=== PATIENT | female | born 1955 | race Caucasian/White ===

== ENCOUNTER 2024-05-24 08:57 | Outpatient (CLI) | payer OTHER ==
[~2024-05-24 08:57] MED LIST: CALTRATE-600/VI1 TA1; LASIX20 MG; NORVASC5 MG; SYNTHROID150 MCG; VITAMIN B12; ZESTRIL20 MG; ZIAC 5-6.25 MG1 TAB
== END 2024-05-24 09:01 | disposition home or self-care (01) ==
LOC: RAD 08:57
PROVIDERS: ATTEND Orthopaedic Surgery
DX: M25.561 Pain in right knee (principal); M25.562 Pain in left knee

== ENCOUNTER 2024-06-03 10:26 | Outpatient (CLI) | payer OTHER | END 2024-06-03 10:27 | disposition home or self-care (01) | LOC: NUCLEAR 10:26 | PROVIDERS: ATTEND Orthopaedic Surgery | DX: M81.0 Age-related osteoporosis without current pathological fracture (principal) ==

== ENCOUNTER 2024-07-29 10:47 | Outpatient (CLI) | payer OTHER | END 2024-07-29 10:48 | disposition home or self-care (01) | LOC: LAB 10:47 | PROVIDERS: ATTEND Orthopaedic Surgery | DX: E55.9 Vitamin D deficiency, unspecified (principal); M85.9 Disorder of bone density and structure, unspecified; E56.1 Deficiency of vitamin K ==

== ENCOUNTER 2024-07-29 11:12 | Outpatient (CLI) | payer OTHER | END 2024-07-29 11:18 | disposition home or self-care (01) | LOC: MRI 11:12 | PROVIDERS: ATTEND Orthopaedic Surgery | DX: M17.11 Unilateral primary osteoarthritis, right knee (principal); M23.91 Unspecified internal derangement of right knee | CPT/HCPCS: 73718 ==

== ENCOUNTER 2024-10-13 14:07 | Outpatient (CLI) | payer OTHER | END 2024-10-13 14:09 | disposition home or self-care (01) | LOC: RAD 14:07 | PROVIDERS: ATTEND Orthopaedic Surgery | DX: M25.512 Pain in left shoulder (principal) ==

== ENCOUNTER 2024-10-17 10:32 | Outpatient (CLI) | payer OTHER | END 2024-10-17 10:35 | disposition home or self-care (01) | LOC: SONOGRAMA 10:32 | PROVIDERS: ATTEND Orthopaedic Surgery | DX: M75.42 Impingement syndrome of left shoulder (principal) ==

== ENCOUNTER 2024-12-19 08:45 | Outpatient (CLI) | payer OTHER ==
[~2024-12-19] VITALS: Ht 154.9 cm; Wt 84.4 kg
[2024-12-19 09:11] VITALS: BP 143/79
[2024-12-19 09:46] LABS: BASO % 0.5 % (0.1-1.2); EOS # 0.09 (0.04-0.54); EOS % 2.0 % (0.7-7.0); LYMPH # 1.74 (1.18-3.74); LYMPH % 39.4 % (19.3-53.1); MEAN PLATELET VOLUME 10.90 fl (9.4-12.4); MONO # 0.53 (0.24-0.82); MONO % 12.0 % (4.7-12.5); NEUT # 2.03 (1.56-6.13); NEUT % 45.9 % (34.0-71.1); RED CELL DISTRIBUTION WIDTH 12.8 % (11.6-14.4)
[2024-12-19 09:48] LABS: URINE APPEARANCE Clear; URINE BILIRRUBIN Negative (NEGATIVE); URINE BLOOD Negative; URINE COLOR Yellow; URINE GLUCOSE Negative (NEGATIVE); URINE KETONE Negative (NEGATIVE); URINE LEUKOCYTE Negative; URINE NITRATE Negative; URINE PROTEIN Negative (NEGATIVE); URINE UROBILINOGEN 0.2 E.U./dl
[2024-12-19 09:52] LABS: URINE BACTERIA 376.7 uL (0.0-1933); URINE EPITHELIAL CELLS 7.0 uL (0.0-38.8); URINE RBC 3.2 uL (0.0-20.8); URINE WBC 5.3 uL (0.0-23.2)
[2024-12-19 09:55] LABS: URINE CAST 0.14 uL (0.0-1.40)
[2024-12-19 10:32] LABS: COL EPI 85 SECONDS (82-175)
[2024-12-19 10:56] LABS: ALT/SGPT 26.0 U/L (12-78); AST/SGOT 25.0 U/L (15-37); BILIRUBIN TOTAL 0.68 mg/dL (0.3-1.2); BUN CREA RATIO 25.0 (7.0-25.0); CREATININE SERUM 0.61 mg/dL (0.55-1.02); GFR 96.96; GLOBULINA 2.9 G/DL (2.4-3.5); GLUCOSE FASTING 95.0 mg/dL (65-100); OSMOLALITY SERUM 289.0 MOSM/KG (275-295)
[2024-12-19 10:57] LABS: INR 0.98
== END 2024-12-19 08:56 | disposition home or self-care (01) ==
LOC: RAD 08:45
PROVIDERS: ATTEND Orthopaedic Surgery
DX: D64.9 Anemia, unspecified (principal); E88.89 Other specified metabolic disorders; D68.8 Other specified coagulation defects; N39.0 Urinary tract infection, site not specified; Z22.322 Carrier or suspected carrier of Methicillin resistant Staphylococcus aureus; Z76.89 Persons encountering health services in other specified circumstances; I10 Essential (primary) hypertension

== ENCOUNTER 2024-12-30 06:00 | Day surgery (SDC) | payer OTHER ==
[2024-12-26 13:04] VITALS: BP 143/79
[~2024-12-30] VITALS: Ht 154.9 cm; Wt 85.3 kg
[2024-12-30] MEDS ORDERED: CEFAZOLIN SODIUM 1,000 MG VIAL IV ONE (09:00)
[2024-12-30] MEDS ORDERED: BUPIVACAINE HCL/PF 0.25% 30ML VIAL InF ONE (09:15)
[2024-12-30] MEDS ORDERED: LIDOCAINE HCL 1%/EPINEPHRINE 20ML VIAL IJ ONE (09:15)
== END 2024-12-30 13:30 | disposition home or self-care (01) ==
LOC: CIR.AMB 06:00
PROVIDERS: ATTEND Orthopaedic Surgery
DX: M75.122 Complete rotator cuff tear or rupture of left shoulder, not specified as traumatic (principal); M65.812 Other synovitis and tenosynovitis, left shoulder; M75.22 Bicipital tendinitis, left shoulder; M24.112 Other articular cartilage disorders, left shoulder